=== PATIENT | male | born 1995 | race Caucasian/White ===

== ENCOUNTER 2021-02-17 02:55 | Emergency (ER) | payer SELFPAY ==
[~2021-02-17] VITALS: Ht 185.4 cm; Wt 90.7 kg
[2021-02-17 02:57] VITALS: BP 162/84
[2021-02-17] MEDS ORDERED: ACET-2619 PO (03:09)
[2021-02-17 03:15] VITALS: BP 162/84
== END 2021-02-17 03:15 ==
LOC: MED 02:55
DX: Z02.89 Encounter for other administrative examinations (principal); V98.8XXA Other specified transport accidents, initial encounter; Y93.89 Activity, other specified; Y92.89 Other specified places as the place of occurrence of the external cause; Y99.8 Other external cause status
CPT/HCPCS: 99283